=== PATIENT | male | born 1955 | race Caucasian/White ===

== ENCOUNTER 2018-11-07 05:59 | Day surgery (SDC) | payer BC ==
[2018-11-06 16:36] VITALS: BMI 37.3
[2018-11-07] MEDS ORDERED: EPINEPHrine 0.3 MG in Ophthalmic Irrigation Solution 500 ML IVP SCH (06:00)
[2018-11-07] MEDS ORDERED: Phenylephrine 2.5% Ophth Soln 5 ML BOT ONE (06:18)
[2018-11-07] MEDS ORDERED: Cyclopentolate 1% Opth Drop 2 ML BOT ONE (06:18)
[2018-11-07] MEDS ORDERED: Fentanyl 100 MCG/2 ML VIAL ONE (06:29)
[2018-11-07] MEDS ORDERED: Midazolam HCl 2 mg/2 ml Vial ONE (06:29)
[2018-11-07] MEDS ORDERED: PROPOFOL 20 ML ONE (06:29)
--- NOTE | 2018-11-07 11:03 | OP ---
DATE OF PROCEDURE: 11/07/2018 PREOPERATIVE DIAGNOSIS: Vitreous membranes, right eye. POSTOPERATIVE DIAGNOSIS: Vitreous membranes, right eye. PROCEDURES PERFORMED: Pars plana vitrectomy and membrane peel, right eye. ANESTHESIA: Local with monitored anesthesia care. PROCEDURE IN DETAIL: The patient was identified in the preoperative holding area. Appropriate informed consent for the planned procedure on the right eye had been obtained. The patient was transported to the operating suite where appropriate cardiopulmonary monitoring was established. Local anesthesia was obtained using retrobulbar and modified Van Lint lid block using 50/50 mixture of 4% lidocaine and 0.75% bupivacaine. The patient was prepped and draped in the usual sterile manner for ophthalmic surgery on the right eye. Lid speculum was placed in the right eye. A 25-gauge trocar was placed in the conjunctivae and sclerae superotemporally, inferotemporally, and supranasally. Infusion line was placed inferotemporally. Light pipe and vitreous cutter were inserted into the eye. Core vitrectomy was performed. Vitreous membranes were removed by direct dissection. Membranes were removed from the back surface of the lens using vitrectomy cutter. Indirect ophthalmoscopy was used to exam the retina 360 degrees. No holes, breaks, or tears were identified. Prophylactic laser was placed behind the sclerotomy sites. Trocars were removed. The eye was noted to retain pressure well. Retrobulbar Kenalog and subconjunctival Ancef were placed. Antibiotic ointment was placed and the eye was patched and shielded. The patient was taken to the postoperative recovery unit in good condition, having suffered no immediate perioperative complications. The patient was instructed to keep patch shield on, avoid lifting or bending, and Followup appointment with Dr. Munguia. Job ID: [id number]
== END 2018-11-07 08:50 | disposition home or self-care (01) ==
LOC: SDC 05:59
PROVIDERS: ATTEND Ophthalmology Retina Specialist
PROC: 08NE3ZZ Release Right Retina, Percutaneous Approach (ICD-10-PCS; principal; 2018-11-07)
PROC: 08T43ZZ Resection of Right Vitreous, Percutaneous Approach (ICD-10-PCS; principal; 2018-11-07)
DX: H43.311 Vitreous membranes and strands, right eye (principal); Z88.0 Allergy status to penicillin
CPT/HCPCS: J0131; J0171; J2250; J2704; J3010